=== PATIENT | male | born 1990 | race Hispanic/Latino ===

== ENCOUNTER 2019-07-29 14:12 | Emergency (ER) | payer OTHER, SELFPAY ==
[2019-07-29 14:19] VITALS: BP 133/72; PULSE 73; RESP 14; TEMP 37.1; O2SAT 98; BMI 24.3
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
[2019-07-29] MEDS: TET,DIPH,PERTUSS(ACELL),VAC/PF 0.5 ML SYRINGE IM (15:05)
[2019-07-29] MEDS: LIDO 1%/SOD BICARB 8.4% (10ML) 10 ML SYRINGE INJ (15:24)
[2019-07-29] MEDS: cephALEXin 250 MG CAPSULE 500 MG PO (15:24)
[2019-07-29] MEDS: BACITRACIN OINT 0.9 GM PCKT 1 APPLIC TOP (15:24)
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
== END 2019-07-29 16:40 | disposition home or self-care (01) ==
PROVIDERS: Emergency Provider Nurse Practitioner Family; PCP Family Medicine
DX: S61.216A Laceration without foreign body of right little finger without damage to nail, initial encounter (principal); S60.222A Contusion of left hand, initial encounter; W45.8XXA Other foreign body or object entering through skin, initial encounter; Z23 Encounter for immunization
CPT/HCPCS: 12001; 73130; 90471; 99283; 99284; 90715

== ENCOUNTER → 2020-01-01 10:09 | Outpatient (CLI) | payer OTHER, SELFPAY ==
--- NOTE | 2020-01-01 | DI.RAD.S_ITS ---
PROCEDURE: XR HAND RT MIN 3V INDICATIONS: RIGHT HAND PAIN INJURY BACK IN JULY TECHNIQUE: 3 views of the hand(s) acquired. COMPARISON: [facility], CR, XR HAND RT MIN 3V, 07/29/2019, 14:49. FINDINGS: Bones: No fractures or dislocations. Carpal bones are normally aligned. No suspicious bony lesions. Soft tissues: No suspicious soft tissue calcifications. IMPRESSION: No trauma found, no sign of healed fracture. Source of persistent pain since July is not identified. Dictated by: Mayito Carias M.D. on 01/01/2020 at 10:50 Approved by: Mayito Carias M.D. on 01/01/2020 at 10:50
== END ==
PROVIDERS: Referring Provider Nurse Practitioner Family; Visit Provider Nurse Practitioner Family
DX: M79.641 Pain in right hand (principal)
CPT/HCPCS: 73130

== ENCOUNTER → 2020-01-30 12:07 | Outpatient (CLI) | payer OTHER, SELFPAY ==
--- NOTE | 2020-01-30 | DI.MRI.S_ITS ---
PROCEDURE: MR HAND RT WO CON INDICATIONS: Pain in right hand TECHNIQUE: Noncontrast coronal T1 spin echo and T2 fast spin echo with fat saturation, axial proton density fast spin echo and T2 fast spin echo with fat saturation, sagittal T1 spin echo and STIR through the hand and fingers. COMPARISON: [facility], CR, XR HAND RT MIN 3V, 01/01/2020, 10:18. FINDINGS: Image quality: Excellent. Bones: The bones are normally aligned, without marrow contusions or fractures. There is 2 mm marginal marrow signal change involving the 5th metacarpal head with T2 hyperintensity which could reflect small erosion although technically nonspecific. There is minimal 5th MCP joint effusion Interphalangeal joint(s): The accessory and proper collateral ligaments appear intact. The volar plate demonstrates normal morphology. The extensor central slips appear intact on sagittal images. Metacarpophalangeal joint(s): The accessory and proper collateral ligaments appear intact, as well as the volar plate and adjacent deep transverse metacarpal ligaments. The sagittal bands of the extensor fierro appear normal. Extensor apparatus: There is minimal extensor digitorum tenosynovitis. There is also minimal extensor carpi radialis longus and brevis tenosynovitis. Flexor apparatus: The flexor digitorum superficialis and profundus tendons both appear intact. All annular and cruciform pulleys appear intact, without adjacent soft tissue edema. Soft tissues: Visualized muscles demonstrate normal bulk and internal signal. No intramuscular masses identified. No ganglion cysts. IMPRESSION: Grossly unremarkable examination. Minimal 5th MCP joint effusion. Possible age-indeterminate erosion at the 5th metacarpal head. If there is concern for inflammatory arthropathy and/or synovitis, dedicated contrast enhanced MRI could be considered. Minimal extensor digitorum, extensor carpi radialis longus and brevis tenosynovitis although the MR appearance is quite subtle. Otherwise, normal MR appearance of the little finger Dictated by: Antoine Underwood M.D. on 01/30/2020 at 13:21 Approved by: Antoine Underwood M.D. on 01/30/2020 at 13:36
== END ==
PROVIDERS: Referring Provider Orthopaedic Surgery; Visit Provider Orthopaedic Surgery
DX: M79.641 Pain in right hand (principal); S61.21 Laceration without foreign body of finger without damage to nail; X58.XXXS Exposure to other specified factors, sequela
CPT/HCPCS: 73218